=== PATIENT | male | born 1980 | race Caucasian/White ===

== ENCOUNTER 2024-04-10 08:22 | Emergency (ER) | payer BC, SELFPAY ==
[2024-04-10 08:28] VITALS: BP 133/85; PULSE 66; RESP 19; TEMP 35.9; O2SAT 100
--- NOTE | 2024-04-10 08:50 | ED.WOUNDLAC ---
HPI - Wound/Laceration General Chief Complaint: Wound/Laceration Stated Complaint: PUNCTURE WOUND R FOOT Time Seen by Provider: 04/10/24 08:48 Source: patient, RN notes reviewed and old records reviewed Mode of arrival: ambulatory Limitations: no limitations History of Present Illness HPI narrative: Patient presents today with complaints of puncture wound to right foot. Patient reports that yesterday afternoon he was wearing shoe when he stepped on a board with a nail in it. He reports that he was easily able to pull the nail out of the foot. He immediately washed the site. He does admit that he cannot recall his last tetanus. He is able to walk, but does say that it is uncomfortable. He saw all other injury and trauma. Has no other complaints today. Denies any significant medical history, denies any daily medications. Related Data Allergies Allergy/AdvReac Type Severity Reaction Status Date / Time No Known Allergies Allergy Verified 04/10/24 08:29 Review of Systems Review of Systems: All systems reviewed & are unremarkable except as noted in HPI and below Constitutional: Constitutional: Reports no additional constitutional complaints ENT: Reports system reviewed and no additional complaints, except as documented Cardiovascular: Cardiovascular: Reports no additional cardiovascular complaints Respiratory: Respiratory: Reports no additional respiratory complaints Gastrointestinal: Gastrointestinal: Reports no additional gastrointestinal complaints PMFSH Comments At the time of my signature, I reviewed and agree with the nursing past medical, surgical, social, and family history. There is no relevant family history pertinent to the patient complaint. Exam Const: General: cooperative, no acute distress, alert and awake Orientation/consciousness: oriented to person, oriented to place and oriented to time HENMT: Head: normal to inspection Resp: Effort & Inspection: normal respiratory effort and able to speak in complete sentences Auscultation: clear to auscultation bilaterally, no crackles, no rales, no rhonchi and no wheezes Cardio: Palpation: normal PMI Rate: regular rate Rhythm: regular rhythm Heart sounds: S1 normal heart sound present and S2 normal heart sound present Skin: Wounds: wounds noted (There is a small puncture wound to the sole of the right foot, no erythema.) Neuro: General: oriented to person, oriented to place and oriented to time Cranial nerves: Yes CN's II-XII intact bilaterally Psych: Appearance: grossly normal Thought process: Normal thought process present Insight: Good insight present (Psych) Judgement: Good judgement present (Psych) Course Course Level of Care: Express Care Visit Vital Signs Vital signs: Vital Signs Temperature 96.7 F L 04/10/24 08:28 Pulse Rate 66 04/10/24 08:28 Respiratory Rate 19 04/10/24 08:28 Blood Pressure 133/85 04/10/24 08:28 Pulse Oximetry 100 04/10/24 08:28 Oxygen Delivery Room Air 04/10/24 08:28 Temperature 96.7 F L 04/10/24 08:28 Pulse Rate 66 04/10/24 08:28 Respiratory Rate 19 04/10/24 08:28 Blood Pressure 133/85 04/10/24 08:28 Pulse Oximetry 100 04/10/24 08:28 Oxygen Delivery Room Air 04/10/24 08:28 Reviewed MDM - Wound/Laceration MDM Narrative Medical decision making narrative: Patient with a puncture wound to right foot secondary to stepping on a board with a nail in it yesterday. Will update tetanus today. Short course of Augmentin prophylactically. Emergency department with new or worsening symptoms. Blood pressure noted to be elevated, patient advised follow-up with primary in 1-2 weeks Discharge instructions reviewed with patient, as well as provided in writing per nursing staff. The instructions also include specific and strict return/GO TO THE ER as well as f/u information. All questions have been answered, and the patient deny any further questions with discharge and discharge plan
[2024-04-10] MEDS: TETANUS,DIPHTHERIA,AC PERTUSSIS ADULT (0.5 ML) BOOSTRIX IM (08:58)
== END 2024-04-10 09:06 | disposition home or self-care (01) ==
PROVIDERS: Emergency Provider Nurse Practitioner Family; PCP Family Medicine
DX: S91.331A Puncture wound without foreign body, right foot, initial encounter (principal); W45.0XXA Nail entering through skin, initial encounter; Z23 Encounter for immunization
CPT/HCPCS: 90471; 90715; 99213; G0463